=== PATIENT | female | born 1935 | race Caucasian/White ===

== ENCOUNTER 2022-04-02 07:27 | Outpatient (CLI) | payer MEDICARE, BC, SELFPAY | END 2022-04-02 07:28 | disposition home or self-care (01) | PROVIDERS: PCP Internal Medicine; Visit Provider Family Medicine | DX: M51.36 Other intervertebral disc degeneration, lumbar region (principal); M54.16 Radiculopathy, lumbar region | CPT/HCPCS: 64483; J1100; Q9966 ==

== ENCOUNTER 2022-05-30 08:55 | Outpatient (CLI) | payer MEDICARE, BC, SELFPAY ==
--- NOTE | 2022-05-30 09:15 | CRLHL7_ITS ---
For Patients: As a result of the Century Cures Act, medical imaging exams and procedure reports are released immediately into your electronic medical record. You may view this report before your referring provider. If you have questions, please contact your health care provider. Technique: Double-contrast esophagram performed after the uneventful administration of effervescent crystals and thick barium. Fluoroscopy time 1 minutes 7 seconds. Indication: Hoarseness, CHOKING EPISODES, LUMP ON HER LEFT SIDE NECK Comparison: None. Findings: No obstruction to the flow barium. No achalasia. Barium tablet passes normally. No significant hiatal hernia. Esophageal mucosal contour is normal. No ulcer. No diverticulum. Impression: No significant findings. Specifically, no evidence of achalasia, hiatal hernia or mucosal irregularity. Esophageal motility is normal. Dictated by Delonte Neal MD @ 05/30/2022 2:25:00 PM (Electronically Signed)
== END 2022-05-30 08:56 | disposition home or self-care (01) ==
PROVIDERS: PCP Internal Medicine; Visit Provider Internal Medicine
DX: R22.1 Localized swelling, mass and lump, neck (principal); R13.12 Dysphagia, oropharyngeal phase
CPT/HCPCS: 74221

== ENCOUNTER 2022-07-14 10:03 | Outpatient (CLI) | payer MEDICARE, BC, SELFPAY | END 2022-07-14 10:04 | disposition home or self-care (01) | PROVIDERS: PCP Internal Medicine; Visit Provider Orthopaedic Surgery | DX: Z01.818 Encounter for other preprocedural examination (principal) | CPT/HCPCS: 36415; 86850; 86900; 86901 ==

== ENCOUNTER 2022-07-15 09:07 | Outpatient (CLI) | payer MEDICARE, BC, SELFPAY ==
[2022-07-15 14:18] LABS: SARS PCR* Negative SARS-CoV-2 (Negative)
== END 2022-07-15 09:08 | disposition home or self-care (01) ==
PROVIDERS: PCP Internal Medicine; Visit Provider Orthopaedic Surgery
DX: Z20.822 Contact with and (suspected) exposure to COVID-19 (principal); Z01.818 Encounter for other preprocedural examination
CPT/HCPCS: 87635

== ENCOUNTER 2022-07-16 06:36 | Day surgery (SDC) | payer MEDICARE, BC, SELFPAY ==
[2022-07-16] VITALS (23 sets, daily range): BP systolic 101–147; BP diastolic 52–77; PULSE 74–107; RESP 12–18; TEMP 35.8–36.6; O2SAT 95–100; BMI 24.9
[2022-07-16] MEDS: LACTATED RINGERS 1000 ML 1,000 ML 100 ML IV ×3 (07:10→10:53)
[2022-07-16] MEDS: ACETAMINOPHEN 500 MG TABLET 1000 MG PO (07:30)
[2022-07-16] MEDS: CELECOXIB 200 MG CAPSULE PO (07:30)
[2022-07-16] MEDS: SODIUM CHLORIDE 0.9 % (FLUSH) 10 ML SYRINGE IVF (07:33)
[2022-07-16] MEDS: MIDAZOLAM HCL 1 MG/ML inj IVP (08:00)
[2022-07-16] MEDS: fentaNYL 100 MCG/2 ML inj IVP (08:00)
--- NOTE | 2022-07-16 08:06 | P.NB_ITS ---
Nerve Block Nerve Block Time Seen by Provider: 08:03 Date Seen: 07/16/22 Type of block requested by surgeon for post-operative analgesia: ELVIN/LFCN Side: right Time out performed: Yes Verification of patient name: Yes Verification of date of : Yes Site marking: site marked Name of person performing procedure: Damián Continuous monitoring Was continuous monitoring of O2 sat, B/P, alarm security or surveillance monitor, recorded every 15 minutes?: Yes Procedure Checklist: sterile prep, needles and gloves Ultrasound guided. Images saved: Yes Medications given in 5ml increments after negative aspiration: Ropivicaine %: 0.5 mL: 30 Needle gauge: 20 Decadron (mg): 10 Precedex (mcg): 25 Patient tolerated procedure well: Yes Additional comments: Needle noted below psoas tendon needle noted adjacent to LFCN Block Charges Block Charge (with Pro Fee): Other Periph Nerve Block Use of Ultrasound Machine for Block: Yes- US Guidance/pain block
--- NOTE | 2022-07-16 08:06 | W.ANESCHARGE ---
Anesthesia Charges Start Date/Time Anesthesia Start Date: 07/16/22 Anesthesia Start Time: 08:28 Stop Date/Time Anesthesia Stop Date: 07/16/22 Anesthesia Stop Time: 10:39 Summary Extremes of Age - Over 70 or under 1: MDA
--- NOTE | 2022-07-16 08:14 | SUR.PREOP ---
TIME?OUT:?0800 PT/RN/MDA?VERIFICATION?OF?SURGICAL?SITE,?PROCEDURE,?AND?CONSENT OBTAINED?PRIOR?TO?INVASIVE?PROCEDURE.
--- NOTE | 2022-07-16 08:15 | CRLHL7_ITS ---
For Patients: As a result of the Cures Act, medical imaging exams and procedure reports are released immediately into your electronic medical record. You may view this report before your referring provider. If you have questions, please contact your health care provider. Indication: Hip replacement surgery Technique: AP hip fluoroscopic images. Fluoroscopy time 58.5 seconds. Findings/Impression: Hardware from a right total hip arthroplasty is in satisfactory position. Dictated by Delonte Neal MD @ 07/16/2022 10:01:01 AM (Electronically Signed)
[2022-07-16] MEDS: CEFAZOLIN 2 GM INJ IVP (08:35)
[2022-07-16] MEDS: TRANEXAMIC ACID 100 MG/ML INJ 1000 MG IV (08:37)
--- NOTE | 2022-07-16 09:22 | SUR.OPER ---
PATIENT QUESTIONS ANSWERED SATISFACTORILY PREOPERATIVELY.? PATIENT BROUGHT TO OR #2 PER CART AFTER ADMINISTRATION OF A BLOCK.? Patient positioned supine on OR #2 bed.? The perioperative?team supported arms bilaterally on arm boards.? Final approval of positioning by surgeon.?
--- NOTE | 2022-07-16 09:51 | CRLHL7_ITS ---
For Patients: As a result of the Cures Act, medical imaging exams and procedure reports are released immediately into your electronic medical record. You may view this report before your referring provider. If you have questions, please contact your health care provider. Indication: Postop HAYDEN Technique: AP hip center pelvis and lateral view right hip Findings/Impression: Hardware from a right total hip arthroplasty is in satisfactory position. Bone alignment is normal. No sign of acute fracture. Postop changes are within normal limits. Dictated by Delonte Neal MD @ 07/16/2022 10:55:34 AM (Electronically Signed)
--- NOTE | 2022-07-16 09:56 | P.ORPRC_ITS ---
Procedure Note Date of procedure: 07/16/22 Procedure: PREOPERATIVE DIAGNOSIS: Right hip osteoarthritis POSTOPERATIVE DIAGNOSIS: Right hip osteoarthritis NAME OF OPERATION: Right total hip arthroplasty SURGEON: Sebastián Zayas MD HTML WEB DEVELOPER: Kary Baird PA-C, NOEMY Lindsey IMPLANTS: 1. [employer] [place] # 50 sector ingrowth cup 2. 32 x 50 +4 neutral polyethylene 3. Actis # 6 high offset collared ingrowth stem 4. 32 + 1 cobalt chrome femoral head ANESTHESIA: General ESTIMATED BLOOD LOSS: 400 cc COMPLICATIONS: None SPECIMENS: None DRAINS: None PREOPERATIVE ANTIBIOTICS: Ancef 1 g INDICATIONS: The patient is a 86-year-old with a longstanding history of severe, unrelenting right hip pain secondary to end-stage right hip osteoarthritis. Despite appropriate nonoperative management, including activity modification, use of an assist device, anti-inflammatories, [id number] pain medication, physical therapy and injections, they continue to have pain and disability. Operative intervention was offered. The risks, benefits and expected outcomes were discussed in detail. These included but were not limited to: Infection, bleeding, injury to blood vessel or nerve, venous thromboembolism. All questions were answered to their satisfaction. Use of an clinical trial assistant was necessary throughout the case for patient positioning and safety, soft tissue retraction and closure. PROCEDURE: The patient was placed supine on the [place] table. General anesthesia was administered. The clinical trial assistant made sure the patient was properly positioned. The right hip was prepped and draped in the usual sterile fashion. The image intensifier was brought in for a perfect AP pelvis and a perfect double tear drop AP view of each hip which were used for intraoperative templating with our fluoroscopic guide. An oblique incision was made 3 cm distal and 3 cm lateral to the anterior abbott perior iliac spine. The clinical trial assistant retracted the soft tissues to protect them. Subcutaneous dissection was taken with electrocautery to the superficial fascia. The fascia was divided in line with the incision. Blunt dissection was carried medially to the tensor fascia gulshan and sartorius interval. Deep dissection was carried with electrocautery. The circumflex vessels were cauterized and divid ed. The capsule was exposed and then divided in a T-fashion, tagged with #1 Ethibond sutures. Retractors were placed in the joint, held by the clinical trial assistant. The corkscrew was placed in the femoral head. The neck cut was made in the subcapital region. We made a second neck cut more distal. The napkin ring of bone was removed. The femoral head was removed intact. Acetabular retractors were placed, held by the clinical trial assistant. The labrum was sharply debrided. The capsule was released. The 43 mm reamer was used to the true medial wall. We then enlarged in 2 mm increments using the image intensi fier for our reamer placement. We impacted the cup which had excellent purchase. We placed the hole eliminator and the polyethylene. Attention was then turned to the proximal femur. The limb was placed in 140 degrees of external rotation, maximum extension and adduction. A significant amount of time was spent releasing the capsule to allow us to deliver the femur into the wound and complete the femoral side safely. Retractors were held by the clinical trial assistant throughout the femoral preparation. The box office attendant and canal finder were used. Broaches were used to a stable size. The calcar reamer was used. Trial components were placed. The hip was reduced and was found to be stable with appropriate soft tissue tension. Length and offset had been nicely restored using the image intensifier and our fluoroscopic guide. Trial components were removed. The stem was impacted. We placed the femoral head. Again, the hip was reduced and was found to be stable with appropriate soft tissue tension. Length and offset had been nicely restored. The clinical trial assistant did a three minute dilute Betadine solution soak. The clinical trial assistant irrigated the wound with 3 liters of normal saline via pulse lavage. The clinical trial assistant repaired the anterior capsule with a #1 Vicryl and our previously placed Ethibond sutures. The clinical trial assistant closed the fascia over the tensor fascia gulshan with a #1 PDO Stratafix, subcutaneous tissues with 2-0 Vicryl, skin with a running 3-0 Stratafix and glue. A dry dressing was applied by the clinical trial assistant. Sponge and needle counts were correct x 2. The patient tolerated the procedure well; there were no apparent complications. They were awakened and extubated in the operating room, sent to the Post-Anesthesia Care Unit in satisfactory condition. PLAN: 1. The patient will be mobilized with physical therapy, weight-bearing as tolerates 2. Xarelto x 5 days then aspirin x 30 days will be used for DVT prophylaxis 3. The patient will be discharged once medically appropriate
--- NOTE | 2022-07-16 10:40 | W.ANESCHARGE ---
Anesthesia Charges Start Date/Time Anesthesia Start Date: 07/16/22 Anesthesia Start Time: 08:28 Stop Date/Time Anesthesia Stop Date: 07/16/22 Anesthesia Stop Time: 10:39
--- NOTE | 2022-07-16 10:46 | SUR.PHASEI ---
xray here for ap/lat right hip pt tolerated well
[2022-07-16] MEDS: HYDROmorphone 0.5 mg/0.5 ml inj IVP ×2 (11:28→13:15)
--- NOTE | 2022-07-16 14:31 | P.IMCN_ITS ---
Date of Consult Patient: Clay Patient Consult date: 07/16/22 Requesting Physician: Orthopedics Primary Care Provider: Candice Kim MD Consult Narrative Reason for consult: Management of medical problems Narrative: Candelaria Vivas is a 86 year old female admitted to the hospital for right total hip arthroplasty. Procedures performed by Dr. Zayas today. There were no complications. He is requesting consultation for management of medical problems. Patient is having manageable hip pain postoperatively. She has had some mild nausea. She has no other concerns. Preoperatively she reports that she has been struggling recently with prominent anxiety as well as worsening of her tremor. She has had a diagnosis of essential tremor which has gotten much worse in the last 3 months by her description. She is treated with primidone for this. She also has significant problems with anxiety. She was seen in the [place] [address] emergency room for this last week. She takes p.r.n. lorazepam 0.5 mg p.r.n. for this. She does report she has a lot of anxiety about surgery. She took lorazepam 0.5 mg yesterday. Normally she takes one 0.5 mg tablet weekly on average. She also reports she has been struggling with insomnia. She has some trouble falling asleep but even more trouble waking up after for 5 hours of sleep and not being able to fall back asleep again. Review of Systems Narrative: No recent illness. Primary concerns are anxiety insomnia and her t remor. No previous problems with anesthesia, bleeding or clotting disorders. She does acknowledge chronic constipation. 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 They live in a home with 2 steps to get into the house. She then can live on 1 level. She does need to go down 12 steps into the basement to do laundry. Her is healthcare power of direct care professional. Her code status is DNR. She does not smoke. She drinks alcohol about once a week but has not had any alcohol in the last 2-3 months. Highest level of school completed/degree received: high school graduate Smoking Status: Never smoker Do you use any of these nicotine containing products: None How often do you have a drink containing alcohol: monthly or less Alcohol type: wine How many standard drinks containing alcohol do you have on a typical day: 1 or 2 How often do you have six or more drinks on one occasion: Never AUDIT-C Alcohol total score: 1 Non-prescribed substance use: denies use Caffeine: Yes (coffee, 1/2 cup/day) service: No Meds Home Medications and Allergies Home Medications Medication Instructions Recorded Confirmed Type famotidine 20 mg tablet 20 mg PO HS 05/06/22 07/16/22 History gabapentin 100 mg capsule 200 mg PO TID 05/06/22 07/16/22 History primidone 50 mg tablet 50 mg PO HS 05/06/22 07/16/22 History acetaminophen 650 mg 650 mg PO Q8H PRN 07/16/22 07/16/22 History tablet,extended release (8 Hour Pain Reliever) calcium carbonate 200 mg calcium 200 mg PO DAILY 07/16/22 07/16/22 History (500 mg) chewable tablet (Antacid (calcium carbonate)) lorazepam 0.5 mg tablet 0.5 mg PO Q6H PRN anxiety 07/16/22 07/16/22 History magnesium 250 mg tablet 250 mg PO DAILY 07/16/22 07/16/22 History multivitamin (Daily Multi-Vitamin 1 tab PO DAILY 07/16/22 07/16/22 History tablet) omeprazole 40 mg capsule,delayed 40 mg PO DAILY 07/16/22 07/16/22 History release paroxetine HCl 10 mg tablet 10 mg PO DAILY 07/16/22 07/16/22 History Allergies Allergy/AdvReac Type Severity Reaction Status Date / Time atorvastatin Allergy Verified 05/10/22 10:48 oxycodone Allergy Verified 05/10/22 10:48 penicillin V Allergy Verified 05/10/22 10:48 propoxyphene Allergy Verified 05/10/22 10:48 simvastatin Allergy Verified 05/10/22 10:48 Exam Narrative: Exam Narrative: She is alert and oriented to her circumstances. She appears in no distress. She does appear to be moderately anxious and verbalizes this. She has a fine tremor of her mandible as well as of both hands observed. This appears to be an intention tremor in her hands. She also has a mild tremor in her voice. Respirations are clear to auscultation. Cardiovascular: S1, S2, regular rate and rhythm. No murmur gallop or rub. Abdomen: Bowel sounds active. Abdomen is soft without tenderness or mass. She has intact pulses and sensation, strength and motion in her ankles bilaterally normal. Const: Vital Signs, click to edit/add: Vital Signs - 24 hr 07/16/22 07:24 07/16/22 08:00 07/16/22 08:05 Temperature 97.9 F Pulse Rate 82 79 75 Pulse Rate [Left P ulse Oximeter] Respiratory Rate 16 16 16 Blood Pressure 138/60 127/59 L 130/64 Blood Pressure [Ri ght Arm] Pulse Oximetry 99 100 100 Oxygen Delivery Me thod Room Air Nasal Cannula Nasal Cannula Oxygen Flow Rate 2 2 07/16/22 08:10 07/16/22 10:34 07/16/22 10:40 Temperature 97.1 F L Pulse Rate 74 86 82 Pulse Rate [Left P ulse Oximeter] Respiratory Rate 16 16 16 Blood Pressure 118/57 L 123/66 147/65 H Blood Pressure [Ri ght Arm] Pulse Oximetry 100 99 98 Oxygen Delivery Me thod Nasal Cannula Room Air Room Air Oxygen Flow Rate 2 07/16/22 10:45 07/16/22 10:50 07/16/22 10:55 Temperature 97.2 F L Pulse Rate 81 79 80 Pulse Rate [Left P ulse Oximeter] Respiratory Rate 16 16 Blood Pressure 140/63 H 136/68 135/57 L Blood Pressure [Ri ght Arm] Pulse Oximetry 97 98 99 Oxygen Delivery Me thod Room Air Room Air Oxygen Flow Rate 07/16/22 11:01 07/16/22 11:49 07/16/22 11:15 Temperature 96.4 F L 96.6 F L Pulse Rate 80 76 Pulse Rate [Left P ulse Oximeter] 81 Respiratory Rate 16 18 18 Blood Pressure 133/61 Blood Pressure [Ri ght Arm] 120/60 128/53 L Pulse Oximetry 97 99 Oxygen Delivery Me thod Room Air Room Air Room Air Oxygen Flow Rate 07/16/22 11:45 07/16/22 12:00 07/16/22 12:15 Temperature 96.5 F L Pulse Rate Pulse Rate [Left P ulse Oximeter] 83 81 85 Respiratory Rate 18 18 18 Blood Pressure Blood Pressure [Ri ght Arm] 113/52 L 109/57 L 113/52 L Pulse Oximetry 97 98 95 Oxygen Delivery Me thod Room Air Room Air Oxygen Flow Rate 07/16/22 12:30 07/16/22 13:00 Temperature 96.6 F L 96.6 F L Pulse Rate Pulse Rate [Left P ulse Oximeter] 92 89 Respiratory Rate 18 18 Blood Pressure Blood Pressure [Ri ght Arm] 114/61 123/61 Pulse Oximetry 95 97 Oxygen Delivery Me thod Room Air Room Air Oxygen Flow Rate Assessment and Plan Assessment and plan (1) Status post total replacement of right hip: Problem comment: HAYDEN-AA (07/16/2022, Dr. Zayas) Status: Acute (2) Insomnia: Problem comment: Monitor overnight. With pain medications may sleep better in the hospital. Status: Acute (3) Tremor: Problem comment: Essential tremor. Bothersome but not yet disabling Status: Acute (4) Anxiety: Problem comment: This is a big concern for the patient. Ongoing management by primary care as an outpatient. I attempted to reassure her that she is doing well postoperatively, 1 of her sources of anxiety, but she continues to be anxious about her postoperative status Status: Acute Plan Routine management of pain and routine therapy. Anticipate discharge with tomorrow. Address issues with anxiety as needed Total time spent today is 40 minutes, 25 minutes in coordination of care discussing with patient, and other providers postop management of disability, anxiety, insomnia, pain
--- NOTE | 2022-07-16 15:18 | PC.NURSE ---
End of Shift: A&Ox3. VS WNL. Complaining of pain 6-9. PRN medication given with relief. Tolerating regular diet. A1 w/ walker and needs encouragement. Patient is anxious at times. Dressing is C/D/I. Sat up in the chair for lunch and tolerated well. Currently resting in bed.
[2022-07-16] MEDS: FAMOTIDINE 20 MG TABLET PO (16:16)
[2022-07-16] MEDS: CEFAZOLIN 1 GM in 0.9 % SODIUM CHLORIDE Mini-bag 100 ML IVPB (16:16)
[2022-07-16] MEDS: HYDROCODONE-ACETAMIN 5-325 MG 1 TAB PO (17:55)
--- NOTE | 2022-07-16 18:13 | PC.NURSE ---
PATIENT PLEASANT AND COOPERATIVE, ALERT AND ORIENTED, TREMORS NOTED THE DOCTOR DID LET YOU KNOW I HAVE TREMORS RIGHT, DRESSING TO RIGHT HIP CDI, RATING PAIN IN RIGHT HIP 6-10 WITH 6/10 BEING GOOD, BEING MANAGED WITH ACTIVE ICE AND NORCO, TOLERATING REGULAR DIET NO NAUSEA OR VOMITING, UP WITH A1 WALKER AND BELT TOLERATING WELL.
[2022-07-16] MEDS: SENNOSIDES 1 TAB TABLET 2 TAB PO (20:48)
[2022-07-16] MEDS: GABAPENTIN 100 MG CAPSULE 200 MG PO (20:49)
[2022-07-16] MEDS: LACTATED RINGERS 1000 ML 1,000 ML 75 ML IV (20:52)
[2022-07-17 04:08] VITALS: BP 116/60; PULSE 103; RESP 12; TEMP 37; O2SAT 97
--- NOTE | 2022-07-17 06:14 | PC.NURSE ---
Patient is alert and oriented x 3, vss, on regular diet, walks to bathroom with SBA/gait belt/FWW to void. Did not complain of surgical pain in the hip but did mention pain in neck and shoulders - KPak applied to help with discomfort. Patient is walking well with a strong steady gait.
[2022-07-17 06:53] LABS: Basophils Percent Auto 0.1 % (0.0-3.0); Eosinophils Percent Auto 0.3 % (0.0-7.0); Hematocrit 33.3 % (33.0-51.0); Hemoglobin* 11.1 gm/dL (12.0-16.0); Immature Granulocytes Pct Auto 0.2 %; Lymphocytes Percent Auto 19.6 % (20-44); Mean Corpuscular HGB Conc 33 gm/dL (32-36); Mean Corpuscular Hemoglobin 31 pg (26-34); Mean Corpuscular Volume 93 fL (80-100); Monocytes Percent Auto 8.9 % (0.0-11.0); Neutrophils Percent Auto 70.9 % (42.0-72.0); Platelet Count* 226 K/uL (140-440); RDW Coefficient of Variation % 13.1 % (11.5-15.5); Red Blood Count 3.58 m/uL (4.00-5.20)
[2022-07-17 07:00] VITALS: PULSE 98; RESP 20
[2022-07-17 07:17] LABS: Potassium* 4.6 mmol/L (3.6-5.1); Sodium* 135 mmol/L (135-149)
[2022-07-17 07:18] LABS: Slide Review Reflex No
[2022-07-17 07:20] LABS: Blood Urea Nitrogen* 10 mg/dL (7-30); Creatinine* 0.6 mg/dL (0.5-1.5); Estimated Glomerular Filt Rate 88 ml/min
[2022-07-17] MEDS: OMEPRAZOLE 20 MG CAPSULE DR 40 MG PO (07:59)
[2022-07-17] MEDS: LORazepam 0.5 MG TABLET PO (07:59)
[2022-07-17 08:00] VITALS: BP 101/53; PULSE 98; RESP 20; TEMP 36.3; O2SAT 100
[2022-07-17] MEDS: RIVAROXABAN 10 MG TABLET PO (08:00)
[2022-07-17] MEDS: MULTIVITAMIN/MINERALS 1 TABLET 1 TAB PO (08:00)
[2022-07-17] MEDS: CALCIUM CARBONATE 500 MG CHEW PO (08:00)
[2022-07-17] MEDS: MAGNESIUM OXIDE 400 MG TABLET 200 MG PO (08:01)
[2022-07-17] MEDS: PARoxetine 20 MG TABLET 10 MG PO (08:01)
[2022-07-17] MEDS: SENNOSIDES 1 TAB TABLET 2 TAB PO (08:02)
[2022-07-17] MEDS: GABAPENTIN 100 MG CAPSULE 200 MG PO (08:03)
[2022-07-17] MEDS: CEFAZOLIN 1 GM in 0.9 % SODIUM CHLORIDE Mini-bag 100 ML IVPB (08:06)
[2022-07-17] MEDS: HYDROCODONE-ACETAMIN 5-325 MG 1 TAB PO ×2 (09:31→12:37)
--- NOTE | 2022-07-17 10:43 | PM.ORPN ---
Subjective Subjective Time Seen by Provider: 08:00 Date Seen: 07/17/22 Principal diagnosis: Status post right hip replacement 07/16/2022 Interval history: Candelaria is comfortable this morning, however she is very anxious. She is anxious about going home. She is moving well. Staff states she is moving very well as well. Ortho Exam Narrative Exam Narrative: Alert and oriented x3. Patient is in no acute distress. Converses without labored breathing. Hearing is grossly intact. Ambulates with a walker. Examination of the right hip shows the dressing is intact. Mild soft tissue edema. No drainage. CMS intact right lower extremity. Strong quad strength. Bilateral calves are soft and nontender Const Vital Signs, click to edit/add: Vital Signs - 24 hr 07/16/22 10:45 07/16/22 10:50 07/16/22 10:55 Temperature 97.2 F L Pulse Rate 81 79 80 Pulse Rate [Left Pulse Oximeter] Respiratory Rate 16 16 Blood Pressure 140/63 H 136/68 135/57 L Blood Pressure [Right Arm] Pulse Oximetry 97 98 99 Oxygen Delivery Method Room Air Room Air 07/16/22 11:01 07/16/22 11:49 07/16/22 11:15 Temperature 96.4 F L 96.6 F L Pulse Rate 80 76 Pulse Rate [Left Pulse Oximeter] 81 Respiratory Rate 16 18 18 Blood Pressure 133/61 Blood Pressure [Right Arm] 120/60 128/53 L Pulse Oximetry 97 99 Oxygen Delivery Method Room Air Room Air Room Air 07/16/22 11:45 07/16/22 12:00 07/16/22 12:15 Temperature 96.5 F L Pulse Rate Pulse Rate [Left Pulse Oximeter] 83 81 85 Respiratory Rate 18 18 18 Blood Pressure Blood Pressure [Right Arm] 113/52 L 109/57 L 113/52 L Pulse Oximetry 97 98 95 Oxygen Delivery Method Room Air Room Air 07/16/22 12:30 07/16/22 13:00 07/16/22 14:00 Temperature 96.6 F L 96.6 F L 96.9 F L Pulse Rate Pulse Rate [Left Pulse Oximeter] 92 89 92 Respiratory Rate 18 18 18 Blood Pressure Blood Pressure [Right Arm] 114/61 123/61 101/58 L Pulse Oximetry 95 97 97 Oxygen Delivery Method Room Air Room Air Room Air 07/16/22 15:00 07/16/22 16:00 07/16/22 17:00 Temperature 97.7 F 97.7 F Pulse Rate Pulse Rate [Left Pulse Oximeter] 91 104 H 107 H Respiratory Rate 18 18 16 Blood Pressure Blood Pressure [Right Arm] 109/60 111/61 126/67 Pulse Oximetry 96 96 99 Oxygen Delivery Method Room Air Room Air Room Air 07/16/22 19:00 07/16/22 23:00 07/16/22 23:00 Temperature 98 F 97.6 F Pulse Rate Pulse Rate [Left Pulse Oximeter] 102 H 104 H 104 H Respiratory Rate 12 12 Blood Pressure Blood Pressure [Right Arm] 127/77 121/66 Pulse Oximetry 98 97 Oxygen Delivery Method Room Air Room Air 07/17/22 04:08 07/17/22 07:00 07/17/22 08:00 Temperature 98.6 F 97.4 F L Pulse Rate Pulse Rate [Left Pulse Oximeter] 103 H 98 98 Respiratory Rate 12 20 20 Blood Pressure Blood Pressure [Right Arm] 116/60 101/53 L Pulse Oximetry 97 100 Oxygen Delivery Method Room Air Room Air Assessment and Plan Assessment and plan (1) Status post total replacement of right hip: Problem details: HAYDEN-AA (07/16/2022, Dr. Zayas) Status: Acute Assessment and Plan: Plan for discharge is today to home if they meet discharge criteria. DVT prophylaxis includes Xarelto 10 mg daily for total of 5 days, then aspirin 81 mg twice daily for 30 days, Brian stockings x1 month may remove for 1 hr per day, frequent ambulation Remove dressing 1 week. Observe wound and phone Orthopedics with any questions or concerns Use Ice on operative hip unrestricted. Return to clinic in 1 week with PA for a wound check Return to clinic in [address] Zayas Minimize narcotic use. Wean off and discontinue soon as possible. Activities as tolerated. No strenuous activity. Attend outpt PT I also spoke with her today regarding her anxiety about going home. All staff states that she is safe to go home. She is ambulating and moving well. She would be less likely to have high anxiety at home verses a group home. She also states that her pain medication makes her head feel achy. We discussed minimizing the hydrocodone or even taking half a tablet rather than 1 full tablet at a time. She May want to discontinue hydrocodone/acetaminophen completely and only take Tylenol for pain. 4000 mg per day is maximum for Tylenol from all sources. (2) Insomnia: Problem details: Monitor overnight. With pain medications may sleep better in the hospital. Status: Acute (3) Tremor: Problem details: Essential tremor. Bothersome but not yet disabling Status: Acute (4) Anxiety: Problem details: This is a big concern for the patient. Ongoing management by primary care as an outpatient. I attempted to reassure her that she is doing well postoperatively, 1 of her sources of anxiety, but she continues to be anxious about her postoperative status Status: Acute
--- NOTE | 2022-07-17 11:07 | P.IMPN_ITS ---
Progress Note: A&P Assessment and plan (1) Status post total replacement of right hip: Problem details: HAYDEN-AA (07/16/2022, Dr. Zayas). Doing well. No operative complications Status: Acute (2) Insomnia: Problem details: Monitor overnight. With pain medications may sleep better in the hospital. Status: Acute (3) Tremor: Problem details: Essential tremor. Bothersome but not yet disabling. Status: Acute (4) Anxiety: Problem details: This is a big concern for the patient. Ongoing management by primary care as an outpatient. I attempted to reassure her that she is doing well postoperatively, one of her sources of anxiety, but she continues to be anxious about her postoperative status. I think she would do well at home, both with mobility and anxiety, and encouraged her to try to manage at home. Status: Acute Plan Discharge per Orthopedics. Time Spent With Patient Total time spent: 25 minutes, essentially all of it discussing postoperative care and management of anxiety with patient and other providers Subjective Date Seen: 07/17/22 Interval history: 86-year-old female seen in followup of right hip arthroplasty. Patient reports that she is feeling extremely anxious today. She tells me she is anxious about recovery from surgery and going home. Nursing and therapy both indicate that she is doing well with her mobility. She tells me well it is painful to ambulate on her right hip that she is managing the pain adequately at this time. No shortness of breath or fever. She has been able to eat. Exam Narrative: Exam Narrative: She is alert and appears in no distress but quite anxious. Breathing is unlabored. She is observed to walk with a walker without much difficulty. Const: Vital Signs, click to edit/add: Vital Signs - 24 hr 07/16/22 11:49 07/16/22 11:15 07/16/22 11:45 Temperature 96.4 F L 96.6 F L Pulse Rate 76 Pulse Rate [Left P ulse Oximeter] 81 83 Respiratory Rate 18 18 18 Blood Pressure [Ri ght Arm] 120/60 128/53 L 113/52 L Pulse Oximetry 99 97 Oxygen Delivery Me thod Room Air Room Air 07/16/22 12:00 07/16/22 12:15 07/16/22 12:30 Temperature 96.5 F L 96.6 F L Pulse Rate Pulse Rate [Left P ulse Oximeter] 81 85 92 Respiratory Rate 18 18 18 Blood Pressure [Ri ght Arm] 109/57 L 113/52 L 114/61 Pulse Oximetry 98 95 95 Oxygen Delivery Me thod Room Air Room Air Room Air 07/16/22 13:00 07/16/22 14:00 07/16/22 15:00 Temperature 96.6 F L 96.9 F L 97.7 F Pulse Rate Pulse Rate [Left P ulse Oximeter] 89 92 91 Respiratory Rate 18 18 18 Blood Pressure [Ri ght Arm] 123/61 101/58 L 109/60 Pulse Oximetry 97 97 96 Oxygen Delivery Me thod Room Air Room Air Room Air 07/16/22 16:00 07/16/22 17:00 07/16/22 19:00 Temperature 97.7 F 98 F Pulse Rate Pulse Rate [Left P ulse Oximeter] 104 H 107 H 102 H Respiratory Rate 18 16 12 Blood Pressure [Ri ght Arm] 111/61 126/67 127/77 Pulse Oximetry 96 99 98 Oxygen Delivery Me thod Room Air Room Air Room Air 07/16/22 23:00 07/16/22 23:00 07/17/22 04:08 Temperature 97.6 F 98.6 F Pulse Rate Pulse Rate [Left P ulse Oximeter] 104 H 104 H 103 H Respiratory Rate 12 12 Blood Pressure [Ri ght Arm] 121/66 116/60 Pulse Oximetry 97 97 Oxygen Delivery Me thod Room Air Room Air 07/17/22 07:00 07/17/22 08:00 Temperature 97.4 F L Pulse Rate Pulse Rate [Left P ulse Oximeter] 98 98 Respiratory Rate 20 20 Blood Pressure [Ri ght Arm] 101/53 L Pulse Oximetry 100 Oxygen Delivery Me thod Room Air Documenting provider has reviewed patient's vital signs: yes Labs Labs: Laboratory Results - last 24 hr 07/17/22 07/17/22 05:37 05:37 WBC 11.30 H RBC 3.58 L Hgb 11.1 L Hct 33.3 MCV 93 MCH 31 MCHC 33 RDW Coeff of Justine 13.1 Plt Count 226 Neut % (Auto) 70.9 Lymph % (Auto) 19.6 L [place] % (Auto) 8.9 Eos % (Auto) 0.3 Baso % (Auto) 0.1 Neut # (Auto) 8.00 H Lymph # (Auto) 2.20 [place] # (Auto) 1.00 H Eos # (Auto) 0.00 Baso # (Auto) 0.00 Sodium 135 Potassium 4.6 BUN 10 Creatinine 0.6 Estimated Creat Clear 31.60 Estimated GFR 88
--- NOTE | 2022-07-17 11:09 | PC.SOCIAL ---
Per therapy pt is transferring and moving around well and will discharge today. Pt has assistance from her at home. No needs identified for social work.
[2022-07-17 12:00] VITALS: BP 108/53; PULSE 99; RESP 18; TEMP 36.6; O2SAT 98
[2022-07-17 12:14] VITALS: BP 108/53; PULSE 99; RESP 18; TEMP 36.6
--- NOTE | 2022-07-17 12:59 | PC.NURSE ---
Patient vitally stable. All concerns addressed. AVS reviewed. PIV removed. Patient discharged to home with .
== END 2022-07-17 12:56 | disposition home or self-care (01) ==
LOC: OR 06:37 → MEDSURG 06:42
PROVIDERS: PCP Internal Medicine; Visit Provider Orthopaedic Surgery
PROC: (CPT 27130; principal; 2022-07-16 08:15)
DX: M16.11 Unilateral primary osteoarthritis, right hip (principal); F41.9 Anxiety disorder, unspecified; G25.0 Essential tremor; G47.00 Insomnia, unspecified; K21.9 Gastro-esophageal reflux disease without esophagitis
CPT/HCPCS: 27130; 01214; 36415; 73501; 76000; 76942; 82565; 84132; 84295; 84520; 85025; 97110; 97116; 97161; 97165; 97535; 99100; A9153; A9270; C1776; J0330; J0690; J1100; J1170; J2250; J2370; J2405; J2704; J2710; J2795; J3010; J7120